=== PATIENT | male | born 1995 | race Caucasian/White ===

== ENCOUNTER 2018-05-23 16:54 | Emergency (ER) | payer SELFPAY, OTHER ==
[2018-05-23] MEDS: LIDOCAINE 1% (MDV) 20 ML INJ SC (19:04)
== END 2018-05-23 19:06 | disposition home or self-care (01) ==
LOC: FTE 16:54
DX: S61.214A Laceration without foreign body of right ring finger without damage to nail, initial encounter (principal); W25.XXXA Contact with sharp glass, initial encounter; Y92.9 Unspecified place or not applicable
CPT/HCPCS: 12001; 73130-RT; 99283-25

== ENCOUNTER 2018-10-26 15:16 | Emergency (ER) | payer SELFPAY, OTHER | END 2018-10-26 16:01 | disposition home or self-care (01) | LOC: FTE 15:16 | DX: S39.94XA Unspecified injury of external genitals, initial encounter (principal); X58.XXXA Exposure to other specified factors, initial encounter; Y92.9 Unspecified place or not applicable | CPT/HCPCS: 99283 ==